=== PATIENT | male | born 1930 | race Caucasian/White ===

== ENCOUNTER 2018-04-15 10:01 | Outpatient (CLI) | payer MEDICARE, OTHER ==
[~2018-04-15 10:01] MED LIST: ASPI81TA52 PO; CARB-87 PO; LANS30CA37 PO; LEVO100T78 PO; LOSA25TA96 PO; MULT-1179 PO; PROP10TA10 PO; SIMV20TA5 PO; TERA2CAP4 PO
--- NOTE | 2018-04-15 11:47 | NUR ---
Patient arrived safely into the [facility] via wheelchair, accompanied by family. Patient admitted to outpatient wound care clinic for first time visit with physician. Patient assessed and medications and medical history reviewed. Dr. Guzman at bedside accompanied by RN. Wound assessed and no debridement was done. Wound diagnosed as healed. Plan of care discussed with patient. Dressings placed per MD orders. Patient instructed on the signs and symptoms of infection and to call the Wound Center if any occur or to go to the ED if we are closed: Increased pain in wound Increase in drainage from the wound Redness in the skin surrounding the wound Bleeding from the wound Temperature of 101 or greater Patient verbalized understanding of all discharge instructions and plan of care. Patient left in stable condition with no sign or symptom of distress at time of discharge. Addendum: 04/15/18 at 1152 by Aurea Vines RN Amended: Links added.
== END 2018-04-15 11:15 | disposition home or self-care (01) ==
LOC: WOUND CARE 10:01
PROVIDERS: ATTEND Surgery
DX: L89.610 Pressure ulcer of right heel, unstageable (principal); I25.10 Atherosclerotic heart disease of native coronary artery without angina pectoris; I10 Essential (primary) hypertension; I73.9 Peripheral vascular disease, unspecified; Z79.899 Other long term (current) drug therapy; Z95.0 Presence of cardiac pacemaker; Z79.82 Long term (current) use of aspirin
CPT/HCPCS: A6212; G0463

== ENCOUNTER 2019-03-14 17:13 | Inpatient (IN) | payer MEDICARE ==
[~2019-03-14] VITALS: Ht 180.3 cm; Wt 60.0 kg
[~2019-03-14 17:13] MED LIST changes: -ASPI81TA52 PO; -CARB-87 PO; -LANS30CA37 PO; -SIMV20TA5 PO
[2019-03-14 18:30] LABS: BASOPHILS % (AUTO) 0.7 % (0-1); EOSINOPHILS # (AUTO) 0.2 X10'3 (0-0.9); EOSINOPHILS % (AUTO) 2.6 % (0-6); HEMATOCRIT 36.7 % (42.0-52.0); LYMPHOCYTES # (AUTO) 1.3 X10'3 (1.1-4.8); LYMPHOCYTES % (AUTO) 19.4 % (21-51); MEAN CORPUSCULAR HEMOGLOBIN 32.7 PG (27.0-31.0); MEAN CORPUSCULAR HGB CONC 35.4 g/dL (33.0-36.5); MEAN CORPUSCULAR VOLUME 92.2 FL (78-98); MEAN PLATELET VOLUME 8.2 FL (7.4-10.4); MONOCYTES # (AUTO) 0.5 X10'3 (0-0.9); MONOCYTES % (AUTO) 6.8 % (2-12); NEUTROPHILS # (AUTO) 4.7 X10'3 (1.8-7.7); NEUTROPHILS % (AUTO) 70.5 % (42-75); PLATELET COUNT 232 X10'3 (140-440); RED BLOOD COUNT 3.98 X10'6 (4.70-6.10); RED CELL DISTRIBUTION WIDTH 14.3 % (11.5-14.5); WHITE BLOOD COUNT 6.7 X10'3 (4.5-11.0)
[2019-03-14 18:45] LABS: ALANINE AMINOTRANSFERASE 17 U/L (12-78); ALBUMIN 3.4 G/DL (3.4-5.0); ALBUMIN/GLOBULIN RATIO 1.1 (1.1-1.5); ALKALINE PHOSPHATASE 54 IU/L (46-116); ANION GAP 10 (8-16); ASPARTATE AMINO TRANSFERASE 17 U/L (10-37); BILIRUBIN,TOTAL 0.4 MG/DL (0.1-1.0); BLOOD UREA NITROGEN 23 MG/DL (7-18); CALCIUM 8.5 MG/DL (8.5-10.1); CHLORIDE 104 MMOL/L (99-107); CREATININE 1.21 MG/DL (0.60-1.10); GLUCOSE 99 MG/DL (70-104); SODIUM 143 MMOL/L (135-145); TOTAL CARBON DIOXIDE 29.5 MMOL/L (24-32); TOTAL PROTEIN 6.5 G/DL (6.4-8.2); eGFR 56 ML/MIN
[2019-03-14 18:51] LABS: POTASSIUM 2.5 MMOL/L (3.5-5.1)
[2019-03-14] MEDS ORDERED: potassium Cl 20 mEq SR tablet PO ONE (18:55)
[2019-03-14] MEDS: potassium Cl 10 mEq/100mL bag IV SCH ×2 (19:02→20:46)
[2019-03-14] MEDS ORDERED: enoxaparin 100mg/ml syringe SUBCUT ONE (19:10)
[2019-03-14] MEDS ORDERED: metoprolol tartrate 1mg/ml inj IV ONE (19:20)
[2019-03-14] MEDS ORDERED: acetaminophen 325mg tablet PO PRN (20:40)
[2019-03-14] MEDS ORDERED: potassium CL 10mEq/100ml bag 100 ML IV PRN ×2 (20:40)
[2019-03-14] MEDS ORDERED: potassium Cl 20 mEq SR tablet PO PRN (20:40)
[2019-03-14] MEDS ORDERED: ondansetron/PF 4mg/2ml inj IV PRN (20:40)
[2019-03-14 21:35] VITALS: BP 172/97
[2019-03-14] MEDS: potassium Cl 20mEq in NS 1,000 ML IV SCH (23:37)
[2019-03-15 01:14] LABS: POTASSIUM 3.1 MMOL/L (3.5-5.1)
[2019-03-15] MEDS: potassium Cl 20 mEq SR tablet PO PRN ×3 (01:47→16:27)
--- NOTE | 2019-03-15 06:29 | NUR ---
Problems reprioritized. Patient report given, questions answered & plan of care reviewed with KADEN WELLER.
[2019-03-15 06:41] VITALS: BP 156/93
[2019-03-15 07:31] LABS: ALANINE AMINOTRANSFERASE 14 U/L (12-78); ALBUMIN 3.1 G/DL (3.4-5.0); ALBUMIN/GLOBULIN RATIO 1.1 (1.1-1.5); ALKALINE PHOSPHATASE 46 IU/L (46-116); ANION GAP 10 (8-16); ASPARTATE AMINO TRANSFERASE 19 U/L (10-37); BILIRUBIN,TOTAL 0.6 MG/DL (0.1-1.0); BLOOD UREA NITROGEN 22 MG/DL (7-18); BUN/CREATININE RATIO 22.4 (5.4-32.0); CALCIUM 8.1 MG/DL (8.5-10.1); CHLORIDE 108 MMOL/L (99-107); CREATININE 0.98 MG/DL (0.60-1.10); GLUCOSE 72 MG/DL (70-104); SODIUM 143 MMOL/L (135-145); TOTAL CARBON DIOXIDE 24.6 MMOL/L (24-32); TOTAL PROTEIN 5.9 G/DL (6.4-8.2); eGFR 72 ML/MIN
[2019-03-15] MEDS: losartan 50mg tablet PO SCH (07:32)
[2019-03-15] MEDS: levoTHYROXINE 100mcg tablet PO SCH (07:32)
[2019-03-15] MEDS: heparin, porcine 5000 units/ml vial SQ SCH ×2 (07:33→19:52)
[2019-03-15 07:37] LABS: POTASSIUM 3.4 MMOL/L (3.5-5.1)
[2019-03-15] MEDS: K and/or MAG REPLACEMENT MC SCH ×2 (08:34→20:00)
--- NOTE | 2019-03-15 08:59 | NUR ---
Daughter, Elma, called and was updated on the pts status and plan of care. States that her father cannot feed himself and will need help from others. States both she and her brother will be in later today.
[2019-03-15] MEDS: potassium Cl 20mEq in NS 1,000 ML IV SCH ×3 (10:33→20:31)
[2019-03-15 18:00] VITALS: BP 172/83
[2019-03-15 22:00] VITALS: BP 166/70
[2019-03-16 06:00] VITALS: BP 158/75
[2019-03-16 06:17] LABS: ALANINE AMINOTRANSFERASE 14 U/L (12-78); ALBUMIN 2.9 G/DL (3.4-5.0); ALBUMIN/GLOBULIN RATIO 1.2 (1.1-1.5); ALKALINE PHOSPHATASE 43 IU/L (46-116); ANION GAP 6 (8-16); ASPARTATE AMINO TRANSFERASE 13 U/L (10-37); BILIRUBIN,TOTAL 0.4 MG/DL (0.1-1.0); BLOOD UREA NITROGEN 15 MG/DL (7-18); CALCIUM 7.9 MG/DL (8.5-10.1); CHLORIDE 112 MMOL/L (99-107); CREATININE 1.07 MG/DL (0.60-1.10); GLUCOSE 82 MG/DL (70-104); POTASSIUM 3.3 MMOL/L (3.5-5.1); SODIUM 145 MMOL/L (135-145); TOTAL CARBON DIOXIDE 26.7 MMOL/L (24-32); TOTAL PROTEIN 5.3 G/DL (6.4-8.2); eGFR 65 ML/MIN
--- NOTE | 2019-03-16 06:30 | NUR ---
Patient in room [facility]013. I have received report from KADEN Christian and had the opportunity to ask questions and assume patient care.
[2019-03-16] MEDS: K and/or MAG REPLACEMENT MC SCH (07:39)
[2019-03-16] MEDS: losartan 50mg tablet PO SCH (09:45)
[2019-03-16] MEDS: potassium Cl 20 mEq SR tablet PO PRN (09:45)
[2019-03-16] MEDS: levoTHYROXINE 100mcg tablet PO SCH (09:45)
[2019-03-16] MEDS: heparin, porcine 5000 units/ml vial SQ SCH (09:46)
[2019-03-16 11:30] VITALS: BP 143/62
--- NOTE | 2019-03-16 14:05 | NUR ---
pt d/c'd to home with family to hospice. Gordon picked up pt in his own wheelchair for transport home. IV removed. Discharge instructions reviewed with pt, , and daughter.
--- NOTE | 2019-03-16 16:25 | NUR ---
PRESSURE ULCER EDUCATION: DEFINITION: A pressure ulcer is an area of skin that breaks down when you stay in one position too long. The constant pressure against the skin reduces the blood flow to that area and the affected tissue dies. CAUSES: "Being bedridden or in a wheelchair "Fragile skin "Having a chronic condition, such as diabetes or vascular disease "Inability to move certain parts of your body without assistance "Older age "Incontinence of urine or stool SYMPTOMS: "A reddened area that DOES NOT turn white when pressed on - this can be the beginning of a pressure ulcer "A blister, deep sore or a crater - these can be advanced pressure ulcers FIRST AID: "Relieve the pressure on this area "Keep the area clean and dry "Call your primary doctor if you see any of the above symptoms "DO NOT massage the area "DO NOT use a donut shaped or ring shaped pillow- these actually interfere with the blood flow and cause complications PREVENTION: "Check for pressure ulcers everyday "Change position at least every two hours to relieve pressure "Use items that help relieve pressure- pillows, sheepskin, foam padding, and powders. "Keep skin clean and dry "Eat healthy well balanced meals "Exercise daily IF YOU SEE ANY OF THESE SYMPTOMS WHILE IN THE HOSPITAL - TELL YOUR NURSE IMMEDIATELY. IF YOU SEE ANY OF THESE SYMPTOMS WHILE AT HOME OR HAVE ANY QUESTIONS OR CONCERNS ABOUT PRESSURE ULCERS - CALL YOUR PRIMARY DOCTOR IMMEDIATELY. Addendum: 03/16/19 at 1625 by Iris Ellsworth RN Amended: Links added.
== END 2019-03-16 13:15 | disposition hospice, home (50) | DRG 308 ==
LOC: ER 17:13 → ORTHO 4S 20:39 → OBSVTOIN 03-15 15:30 → CMPBEDREQ 03-15 20:06
PROVIDERS: ADMIT Internal Medicine; ATTEND Family Medicine
DX: I48.92 Unspecified atrial flutter (principal); G93.41 Metabolic encephalopathy; E87.6 Hypokalemia; N28.9 Disorder of kidney and ureter, unspecified; E86.0 Dehydration; E03.9 Hypothyroidism, unspecified; F03.90 Unspecified dementia, unspecified severity, without behavioral disturbance, psychotic disturbance, mood disturbance, and anxiety; I10 Essential (primary) hypertension; Z74.01 Bed confinement status; Z87.891 Personal history of nicotine dependence; Z95.1 Presence of aortocoronary bypass graft
CPT/HCPCS: 36415; 71045; 80053; 84132; 84484; 85025; 87081; 93005; 97110; 97161; 97530; 99285; G0378; J1644; J1650; J3480; J3490